=== PATIENT | male | born 1960 | race Caucasian/White ===

== ENCOUNTER → 2023-10-05 09:16 | Outpatient (CLI) | payer MEDICARE, MEDICAID, SELFPAY ==
[2023-10-05 11:20] LABS: Alanine Aminotransferase 43 IU/L (<50); Albumin 4.3 g/dL (3.5-5.0); Albumin Globulin Ratio 1.5 (1.0-2.8); Alkaline Phosphatase 93 U/L (38-126); Aspartate Aminotransferase 34 IU/L (17-59); BUN Creatinine Ratio 24.4 (6-22); Bilirubin Total 0.6 mg/dL (0.2-1.3); Blood Urea Nitrogen 20 mg/dL (9-20); Calcium 9.2 mg/dL (8.4-10.2); Carbon Dioxide 26 mmol/L (22-32); Chloride 107 mmol/L (98-107); Cholesterol 186 mg/dL (140-199); Estimated Glomerular Filt Rate > 60 mL/min (>60); Globulin 2.9 g/dL (1.7-4.1); Glucose 95 mg/dL (80-110); HDL Cholesterol 37 mg/dL (40-60); HEMOLYSIS < 15 (0-50); LDL Cholesterol Calculated 131 mg/dL (<100); Potassium 4.7 mmol/L (3.4-5.1); Sodium 140 mmol/L (137-145); Total Protein 7.2 g/dL (6.3-8.2); Triglycerides 90 mg/dL (35-150)
== END ==
PROVIDERS: PCP Family Medicine; Referring Provider Family Medicine; Visit Provider Family Medicine
DX: Z00.00 Encounter for general adult medical examination without abnormal findings (principal); Z86.73 Personal history of transient ischemic attack (TIA), and cerebral infarction without residual deficits; Z72.0 Tobacco use; Z13.220 Encounter for screening for lipoid disorders
CPT/HCPCS: 36415; 80053; 80061

== ENCOUNTER → 2023-10-10 12:13 | Outpatient (CLI) | payer MEDICARE, MEDICAID, SELFPAY ==
--- NOTE | 2023-10-10 12:17 | DI.CT.S_ITS ---
PROCEDURE: CT LUNG LOW DOSE SCREENING INDICATIONS: Lung cancer screen TECHNIQUE: Noncontrast 2.0-2.5 mm thick sections acquired from the pulmonary apices to the posterior costophrenic angles. 7 mm thick axial MIP, and 5 mm coronal and sagittal reformats were then acquired. For radiation dose reduction, the following was used: automated exposure control, adjustment of mA and/or kV according to patient size. COMPARISON: None. FINDINGS: Image quality: Diagnostic. Lower Neck: No enlarged lymph nodes. Thyroid: No thyroid nodules which require sonographic follow up, per consensus guidelines. Axillae: No enlarged lymph nodes. Chest Wall: Unremarkable. Bones: Unremarkable. Lungs and Pleura: No pneumothorax or pleural effusions. No consolidation or suspicious nodules. A 4 mm pulmonary nodule is present in the right lower lobe (series 3/image 201). Heart: Heart size is normal. No pericardial effusion. Thoracic Vessels: The aorta and pulmonary arteries demonstrate normal size. Mediastinum and Ameena: No enlarged lymph nodes. Esophagus: No wall thickening. No hiatal hernia. Upper Abdomen: Visualized upper abdomen solid organs and bowel loops appear normal. IMPRESSION: 4 mm right lower lobe pulmonary nodule. No suspicious pulmonary nodules. LUNG-RADS 2; [address] follow-up recommended. Clinically Significant Non-pulmonary Findings: None. Dictated by: Darcy Sierra M.D. on 10/10/2023 at 14:53 Approved by: Darcy Sierra M.D. on 10/10/2023 at 14:57
== END ==
LOC: CT 12:17
PROVIDERS: PCP Family Medicine; Referring Provider Family Medicine; Visit Provider Family Medicine
DX: Z12.2 Encounter for screening for malignant neoplasm of respiratory organs (principal); F17.210 Nicotine dependence, cigarettes, uncomplicated; R91.1 Solitary pulmonary nodule
CPT/HCPCS: 71271

== ENCOUNTER → 2023-11-03 09:27 | Outpatient (CLI) | payer MEDICARE, MEDICAID, SELFPAY ==
[2023-11-03 11:22] LABS: Cholesterol 204 mg/dL (140-199); HDL Cholesterol 37 mg/dL (40-60); LDL Cholesterol Calculated 139 mg/dL (<100); Triglycerides 138 mg/dL (35-150)
== END ==
LOC: LAB 09:29
PROVIDERS: PCP Family Medicine; Referring Provider Family Medicine; Visit Provider Family Medicine
DX: Z86.73 Personal history of transient ischemic attack (TIA), and cerebral infarction without residual deficits (principal); Z79.899 Other long term (current) drug therapy; Z72.0 Tobacco use
CPT/HCPCS: 36415; 80061

== ENCOUNTER 2023-11-18 13:47 | Emergency (ER) | payer MEDICARE, MEDICAID, SELFPAY ==
[2023-11-18 13:59] VITALS: BP 145/71; PULSE 86; RESP 18; TEMP 36.6; O2SAT 100; BMI 23.6
--- NOTE | 2023-11-18 14:56 | ED_ITS ---
HPI - Extremity Injury (Upper) <Carolin Chavez PA-C - Last Filed: 11/18/23 15:47> General Chief Complaint: Recheck/Abnormal Lab/Rx Stated Complaint: bleeding from elbow, sent by [facility] Time Seen by Provider: 11/18/23 14:56 Source: patient Mode of arrival: Ambulatory History of Present Illness HPI narrative: Patient is a 63-year-old male with prior history stroke per his report presenting for evaluation of bleeding in his left elbow after biopsy with Dermatology 2 days ago. He is taking clopidogrel and aspirin and losartan. He reports that he wrapped his left arm himself. He states that after wrapping, he started noticing his left hand was somewhat swollen and he noticed some skin changes in his left forearm. He reports that this stopped the bleeding and he was able to sleep last night. He denies any pain or numbness in his hand at present time with the wrapping off. He denies taking any anticoagulants. He denies any fever, body aches or chills. Related Data Home Medications Medication Instructions Recorded Confirmed losartan 25 mg tablet 25 mg PO DAILY 10/05/23 11/09/23 aspirin 81 mg tablet,delayed 81 mg PO DAILY 11/09/23 11/09/23 release (Adult Aspirin Regimen) Previous Rx's Medication Instructions Recorded clopidogrel 75 mg tablet 75 mg PO DAILY #90 tabs 10/26/23 Allergies Allergy/AdvReac Type Severity Reaction Status Date / Time No Known Allergies Allergy Verified 11/09/23 10:47 Review of Systems <Carolin Chavez PA-C - Last Filed: 11/18/23 15:47> Review of Systems Narrative: See HPI Patient History <Carolin Chavez PA-C - Last Filed: 11/18/23 15:47> Medical History Sleep apnea Fracture (~2018) Foot pain (~2018) Ankle pain (~2018) Measles Chicken pox Hx of ischemic left MCA stroke Surgical History Anesthesia History of foot surgery (~2018) Family History Father Lung cancer Diabetes mellitus Hyperlipidemia Mother Hypertension Brother Prostate cancer Hypertension Sister Autoimmune disease Sister Hyperlipidemia Grandfather Peritonitis Grandmother History of heart disease Grandfather Stroke History of heart disease Grandmother Dementia Social History Smoking Status: Former smoker Smoking Status: Former smoker Substance Use Type: does not use Exam <Carolin Chavez PA-C - Last Filed: 11/18/23 15:47> Initial Vital Signs Initial Vital Signs: Vital Signs Temperature 97.8 F 11/18/23 13:59 Pulse Rate 86 11/18/23 13:59 Respiratory Rate 18 11/18/23 13:59 Blood Pressure 145/71 H 11/18/23 13:59 Pulse Oximetry 100 11/18/23 13:59 Oxygen Delivery Method Room Air 11/18/23 13:59 GENERAL: 63 year old patient appears stated age. Well-developed patient, in no acute distress, speaking with slight stutter. HEAD: Atraumatic. Normocephalic. EYES: Pupils equal round No scleral icterus. No injection or drainage. NECK: Trachea midline, supple RESPIRATORY: Speaking comfortably normal tone of voice without any increased work of breathing. EXTREMITIES: Mild residual edema noted, nonpitting in left distal forearm, patient demonstrates 5/5 hr recruiter strength, appropriate capillary refill time of distal fingertips, appropriate color and warmth of left hand BACK: Nontender without deformity or crepitance. NEURO: AOx3. SKIN: Flat small Petechiae over left forearm distal to previous area of wrapping, wound is the size of a dime located on medial side of left elbow with light oozing of blood, no evidence of surrounding erythema or swelling noted. <Margret Gutierrez DO - Last Filed: 11/25/23 11:26> Initial Vital Signs Initial Vital Signs: Vital Signs Temperature 97.8 F 11/18/23 13:59 Pulse Rate 86 11/18/23 13:59 Respiratory Rate 18 11/18/23 13:59 Blood Pressure 145/71 H 11/18/23 13:59 Pulse Oximetry 100 11/18/23 13:59 Oxygen Delivery Method Room Air 11/18/23 13:59 Course <Carolin Chavez PA-C - Last Filed: 11/18/23 15:47> Orders Ordered: Discontinued Medications Bacitracin (Bacitracin Oint 0.9 Gm Pckt) 1 applic TOP NOW ONE Stop: 11/18/23 15:12 Last Admin: 11/18/23 15:19 Dose: 1 applic Documented By: CTS Vital Signs Vital signs: Vital Signs - 8 hr 11/18/23 13:59 11/18/23 15:24 Temperature 97.8 F 97.8 F Pulse Rate 86 78 Respiratory Rate 18 18 Blood Pressure 145/71 H 138/76 Pulse Oximetry 100 97 Oxygen Delivery Method Room Air Room Air <Margret Gutierrez DO - Last Filed: 11/25/23 11:26> Orders Ordered: Discontinued Medications Bacitracin (Bacitracin Oint 0.9 Gm Pckt) 1 applic TOP NOW ONE Stop: 11/18/23 15:12 Last Admin: 11/18/23 15:19 Dose: 1 applic Documented By: CTS Vital Signs Vital signs: Vital Signs - 8 hr 11/18/23 13:59 11/18/23 15:24 Temperature 97.8 F 97.8 F Pulse Rate 86 78 Respiratory Rate 18 18 Blood Pressure 145/71 H 138/76 Pulse Oximetry 100 97 Oxygen Delivery Method Room Air Room Air MDM - Extremity Injury (Upper) <Carolin Chavez PA-C - Last Filed: 11/18/23 15:47> MDM Narrative Medical decision making narrative: Patient is a 63-year-old male presenting for evaluation of a bleeding wound of his left elbow x2 days after biopsy. Physical exam is reassuring. Wound is oozing slightly and well controlled with compression. We have dressed his wound with bacitracin, Telfa pad and Coban. Advised patient on symptoms to look for if bandages to tight such as swelling numbing or pain sensation in his left hand. He verbalizes understanding. I advised him to lose in the wrap if he should experience this. I advised him to change the bandage starting tomorrow and thereafter do daily bandage changes. I recommend he follow up with his primary care provider for further evaluation to ensure appropriate healing. He verbalizes understanding in his agreeable to plan of care. Advised him to return to the emergency room if he develops continued severe pain in his left hand, weakness or numbness despite unwrapping the compression or spreading of the petechiae to other parts of his body. Multiple etiologies for patient's symptoms considered including, but not limited to: Infected wound, bleeding of wound, allergic reaction Patient's symptoms improved over duration of stay with above-stated therapies. Findings and discharge diagnosis discussed with patient/family followed by verbalization of understanding Return precautions discussed with patient/family whom verbalize understanding of diagnosis and plan Discharge Plan Departure Patient Disposition: Home Clinical Impression: Bleeding from wound Activity Restrictions/Additional Instructions: *You were seen today for evaluation of bleeding from your wound after the biopsy on your left elbow. Thankfully, the bleeding has significantly slowed in his quite light today. We discussed that for treatment, I recommend application of pressure with a nonadhesive bandage and a compression wrap to help reduce bleeding. We discussed if you should experience pain in her left hand or swelling that you should loosen the wrap. I recommend applying ice and keeping your left arm elevated if you noticed it continues to have some bleeding despite the compression. Starting tomorrow evening, please change your bandage, gently wash your wound with a gentle soap and water, dry, apply Vaseline and rewrap with compression bandage. I recommend that you make a follow up appointment with your primary care provider to evaluate the wounds next week to ensure it is healing appropriately. Please follow up in the ER if you should develop numbness and pain in her left hand despite taking the wrap off, if bleeding becomes profuse or other concerning signs or symptoms. With a pleasure meeting you today. Thank you for coming in today for your care. *Please follow up with your primary care provider in 2-3 days, call for an appointment. Let them know you were seen in the Emergency Department and that we ask that you be seen in follow up. We will electronically transmit a record of today's note if your PCP is in our system *If you do not have a primary care provider please contact the [facility] Resource line at [phone]. They will ask some questions about your medical history and help get you set up with a doctor in the community. Prescriptions: No Action clopidogrel 75 mg tablet 75 mg PO DAILY Qty: 90 3RF aspirin [Adult Aspirin Regimen] 81 mg tablet,delayed release (DR/EC) 81 mg PO DAILY losartan 25 mg tablet 25 mg PO DAILY Referrals: Lety Hong DO [Primary Care Provider] - Stand Alone Forms: Patient Portal/API ED Sign-out <Margret Botnick, DO - Last Filed: 11/25/23 11:26> Cosign ED Attending Cosignature Attestation: I was available for consultation.
[2023-11-18] MEDS: BACITRACIN OINT 0.9 GM PCKT 1 APPLIC TOP (15:19)
[2023-11-18 15:24] VITALS: BP 138/76; PULSE 78; RESP 18; TEMP 36.6; O2SAT 97
== END 2023-11-18 15:25 | disposition home or self-care (01) ==
PROVIDERS: Emergency Provider Physician Assistant; Family Provider Family Medicine; PCP Family Medicine
DX: L76.21 Postprocedural hemorrhage of skin and subcutaneous tissue following a dermatologic procedure (principal)
CPT/HCPCS: 99282

== ENCOUNTER 2023-11-25 14:00 | Outpatient (RCR) | payer MEDICARE, MEDICAID, SELFPAY ==
--- NOTE | 2023-11-25 16:00 | OT.OP.DC ---
Visit Care Team Role Provider Type Lety Hong DO Attending Provider Physician Family Provider Primary Care Provider Referring Provider Address: [address] [place] [address], [address], [place], [address] Email: [email or web address] Outpatient OT Outpatient Adult Evaluation Start: 11/28/23 09:26 Freq: Status: Active Protocol: Document 11/25/23 16:00 AMS (Rec: 11/28/23 09:45 AMS [id number]) General Information - Adult Visit Information Insurance Information Medicare Session Time Visit Start Time 14:30 Visit Stop Time 15:10 Setting Treatment Setting Outpatient Care Visit Type Note Type Initial Evaluation Identification Identification Confirmed Yes Identification Confirmed By Self Assessment/Plan Assessment Treatment Assessment Rodolfo is 63 years-old, retired, and right hand dominant and referred to OT secondary to stroke that reportedly occurred a month ago affecting dominant right side. Health History was significant for neck pain and ankle surgery. QuickDASH UE Outcome Measure Score = 59.09; QuickDASH UE Sports/ Performing Arts Module Score ( golf) = 75.00. Whole Body Pain Assessment Grid completed; indication of 7-8 out of 10 pain on pain scale relative to lateral surface of L foot, left lower spine, neck, R anterior/posterior shoulder, R armpit, and L dorsal/medial elbow. Rodolfo reported that he has moved out of his brother' s home and is working on renovating his own home; currently he is working on building a fence/gait; he also reports need to paint interior/exterior of the home and level out the floor of the home. Rodolfo denies any limitations with ADLs. He demonstrates good opposition bilaterally w/ EO and EC; he demonstrates good orientation to midline w/ bringing hands together above head and infront of the body. B UE AROM WFL; able to touch top of head, back of head, top of shoulders, lower back and reach down to floor level seated w/ no c/o dizziness. He demonstrates R hand thumb coordination, good R hand in- hand manipulation, and good eye-hand coordination w/ the R hand. MMT findings were as follows: 5/5 MMT for B sh flex, sh ext, sh abd, sh add, elbow flex/ext. Dynamometer II teachers aide strength testing results w/ elbows in 90 degrees flexion = 86.0# of force R teachers aide vs 90# of force L teachers aide. Pinchometer strength testing results: 22.0# of force R lateral reyes pinch vs 22.5# of force L lateral reyes pinch; 21. 5# of force R tip pinch vs 14. 0# of force L tip pinch; 20.0# of force R 3-jaw pinch; 21.0# of force L 3-jaw pinch. No further OT is needed at this time. Recommend d/c from OT. Plan Patient Recommendations Discharge from Occupational Therapy Functional Wrist/Hand Scan Hand Side Sensory Assessment Sensory Profile2
== END 2023-12-08 11:59 ==
LOC: OT 14:00
PROVIDERS: Family Provider Family Medicine; PCP Family Medicine; Referring Provider Family Medicine; Visit Provider Family Medicine
DX: I63.9 Cerebral infarction, unspecified (principal)
CPT/HCPCS: 97165

== ENCOUNTER 2023-12-20 15:12 | Outpatient (RCR) | payer MEDICARE, MEDICAID, SELFPAY ==
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
--- NOTE | 2023-12-20 16:00 | PT.OPPOC ---
Physical, Occupational & Speech Therapy At [facility] Current Diagnoses Other chronic pain (12/20/23) Cerebral infarction, unspecified (12/20/23) Pain in right ankle and joints of right foot (12/20/23) Pain in unspecified foot (12/20/23) Weakness (12/20/23) Visit Care Team Role Provider Type Lety Hong DO Attending Provider Physician Family Provider Primary Care Provider Referring Provider Specialty: Family Practice Address: [address] [place] [address], [address], [facility] Email: [email or web address] Plan Of Care PT-OP-T Assessment and Plan Start: 12/20/23 17:31 Freq: Status: Active Protocol: Document 12/20/23 15:20 DCW (Rec: 12/21/23 11:11 DCW [id number]) Physical Therapy Assessment Assessment Summary Assessment Pt presents 2.5 months s/p CVA doing very well. No safety or physical impairments noted at time of his evaluation. Pt scored 56/56 on Porter Balance scale and 30/30 on Functional Gait Assessment. Does not appear to have any difficulty with gait, stairs, balance, or strength. There was some difficulty due to tangential nature of pt's subjective history and ongoing word- finding difficulty to determine what pt was looking for as far as physical therapy was concerned, but repeated multiple times that he was hoping to lose weight. Without testable deficits to determine medical necessity, this is not a skilled therapeutic intervention. Pt would do well with continued FOOD SERVICE ORDER CLERK intervention for cognition and expressive aphasia. Pt unlikely to benefit from outpatient PT at this time. Physical Therapy Plan Frequency and Duration Plan of Care Start Date 12/20/23 Plan of Care End Date 12/22/23 Discharge Physical Therapy Discharge Comments Skilled Outpatient PT not indicated at this time. Plan of Care Dates Plan of Care Start Date 12/20/23 Plan of Care End Date 12/22/23 Electronically Signed by: Valentin Fink, PT 12/21/23 0904 If you are in agreement with this Plan of Care, please return a signed and dated copy. I have reviewed this Plan of Care and certify that the skilled therapy services above are required to meet the patient?s needs. Physician Signature Date Printed Name and Credentials Clinical Instructor Signature Printed Name and Credentials
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
== END 2023-12-27 10:38 | disposition home or self-care (01) ==
LOC: PHYS 15:12
PROVIDERS: Family Provider Family Medicine; PCP Family Medicine; Referring Provider Family Medicine; Visit Provider Family Medicine
DX: I63.9 Cerebral infarction, unspecified (principal); R53.1 Weakness; M79.673 Pain in unspecified foot; M25.571 Pain in right ankle and joints of right foot; G89.29 Other chronic pain
CPT/HCPCS: 97161

== ENCOUNTER → 2024-01-18 11:53 | Outpatient (CLI) | payer MEDICARE, MEDICAID, SELFPAY ==
--- NOTE | 2024-01-18 11:55 | DI.CT.S_ITS ---
PROCEDURE: CT LE RT WO CON INDICATIONS: Right foot pain TECHNIQUE: Noncontrast 1-1.5 mm axial sections acquired from above the tibiotalar joint to the bottom of the calcaneus, with coronal and sagittal reformats. COMPARISON: [facility] Outside Film, CR, XR CALCANEUS RIGHT, 06/01/2017, 9:04. [facility] Outside Film, CR, XR CALCANEUS RIGHT, 07/27/2017, 14:13. [facility]opedic Topping, CR, XR FOOT 3 VIEWS WEIGHT BEARING RIGHT, 01/03/2024, 16:02. FINDINGS: Image quality: Diagnostic. Significant beam hardening artifacts from surgical hardware in right calcaneus are seen. Bones: Again noted are post ORIF changes in calcaneus. Surgical hardware positions are not significantly changed from prior study back in 2017. There is no gross hardware loosening or failure. Partial bony union involving comminuted calcaneal fracture site is seen. Osteoarthritic changes are noted throughout right foot more notably involving subtalar joint and talonavicular joint. No acute fracture or dislocation. No suspicious intraosseous lesion. No CT evidence of metatarsal stress fracture. Soft tissues: There is small amount of tibiotalar joint effusion. No calcified intra-articular loose bodies. No soft tissue mass or discrete drainable fluid collection. No full-thickness tendon rupture. There is no abnormal soft tissue calcifications. The visualized plantar fascia appears thickened near its plantar calcaneal insertion. IMPRESSION: 1. Prior surgery in calcaneus with surgical hardware in place and partial bony fusion at comminuted calcaneal fracture site. No acute fracture or dislocation. No gross hardware loosening or failure. 2. [id number] osteoarthritic changes throughout right foot most notably involving hindfoot joints. No suspicious bony lesions. 3. Thickened plantar fascia concerning for low-grade plantar fasciitis. 4. Small joint effusion, no loose bodies. No abnormal soft tissue calcifications or soft tissue mass. No drainable fluid collection. No full-thickness tendon rupture. Dictated by: Handy Nova M.D. on 01/18/2024 at 16:55 Approved by: Handy Nova M.D. on 01/18/2024 at 16:58
== END ==
LOC: CT 11:54
PROVIDERS: PCP Family Medicine; Referring Provider Orthopaedic Surgery Foot and Ankle Surgery; Visit Provider Orthopaedic Surgery Foot and Ankle Surgery
DX: M79.671 Pain in right foot (principal); S92.001S Unspecified fracture of right calcaneus, sequela; M25.474 Effusion, right foot
CPT/HCPCS: 73700

== ENCOUNTER → 2024-01-31 08:55 | Outpatient (CLI) | payer MEDICARE, MEDICAID, SELFPAY ==
[2024-01-31 10:23] LABS: Cholesterol 172 mg/dL (140-199); HDL Cholesterol 44 mg/dL (40-60); LDL Cholesterol Calculated 91 mg/dL (<100); Triglycerides 185 mg/dL (35-150)
== END ==
PROVIDERS: PCP Family Medicine; Referring Provider Family Medicine; Visit Provider Family Medicine
DX: Z13.220 Encounter for screening for lipoid disorders (principal); I63.9 Cerebral infarction, unspecified; E78.5 Hyperlipidemia, unspecified; Z72.0 Tobacco use
CPT/HCPCS: 36415; 80061

== ENCOUNTER → 2024-03-15 | Outpatient (CLI) | payer MEDICARE, MEDICAID, SELFPAY ==
--- NOTE | 2024-03-15 14:23 | DI.ECHO.S_ITS ---
[facility] +---------+ Hospital : : [address] : : [place] : : [id number] : : Phone: [phone] Echocardiogram Report + + :Name: EMILIA PRETTY Study Date: 03/15/2024 Height: 70 in : :Hospital ReadingLocation: Weight: 200 lb : : Gender: Male BSA: 2.1 m2 : :: 1960 Age: 63 yrs BP: 162/85 mmHg: :Reason For Study: ESSENTIAL HYPERTENSION : :Ordering Physician: ANDREA, : :NIURKA Performed By: Tino Elena : :Referring: NIURKA MENDEZ : + + Interpretation Summary The left ventricle is normal in size. The left ventricular ejection fraction is normal. The ejection fraction is estimated to be 60-65%. The right ventricle is normal size. The right ventricular systolic function is normal. No significant valvular pathology seen. The IVC is of normal diameter and collapses greater than 50% with a sniff. This suggests a low right atrial pressure of 3 mm Hg. Procedure: A two-dimensional transthoracic echocardiogram with color flow and Doppler was performed. The study quality was technically adequate. There is no prior echocardiogram noted for this patient. The patient was in sinus rhythm with heart rates between 63-83 bpm during the exam. Left Ventricle: The left ventricle is normal in size. Proximal septal thickening is noted. There is no thrombus. A false chord is noted (normal variant). The ejection fraction is estimated to be 60-65%. The left ventricular ejection fraction is normal. There are no focal wall motion abnormalities. Diastolic parameters suggest a relaxation abnormality of the left ventricle, consistent with probable normal filling pressures. Right Ventricle: The right ventricle is normal size. The right ventricular systolic function is normal. Atria: The left atrial size is normal. Right atrial size is normal. The interatrial septum grossly appears intact with no obvious evidence for an atrial septal defect. Mitral Valve: There is mild mitral annular calcification. Redundant elongated chordae are noted. There is no mitral valve stenosis. There is trace mitral regurgitation. Aortic Valve: The aortic valve is trileaflet. There is no aortic valve stenosis. No aortic regurgitation is present. Tricuspid Valve: The tricuspid valve is normal. There is no tricuspid stenosis. Pulmonary artery pressures cannot be estimated because of the lack of a measurable TR jet velocity. There is trace tricuspid regurgitation. Pulmonic Valve: The pulmonic valve is not well visualized. There is no pulmonic valvular stenosis. There is no pulmonic valvular regurgitation. Great Vessels: The aortic root is borderline dilated. The dimensions of the ascending aorta are normal. The IVC is of normal diameter and collapses greater than 50% with a sniff. This suggests a low right atrial pressure of 3 mm Hg. Pericardium/ Pleura There is no pericardial effusion. There is no pleural effusion. MMode/2D Measurements & Calculations LVIDd: 4.7 cm LVOT diam: 2.2 cm LVIDs: 2.9 cm Ao root diam: 3.7 cm FS: 38.7 % asc Aorta Diam: 3.3 cm IVSd: 1.0 cm LVPWd: 0.95 cm LV bueno. diameter/BSA (cm/m^2): 2.3 LV sys. diameter/BSA (cm/m^2): 1.4 LA A2 area: 12.7 cm2 RA long axis: 4.9 cm LA A4 area: 16.2 cm2 RA area: 13.6 cm2 LA length (vol): 5.0 cm RA vol: 32.2 ml LA vol: 35.2 ml RA : 15.4 ml/m2 LA vol index: 16.9 ml/m2 IVC diam: 1.2 cm RVD1 (basal): 2.9 cm RVD2 (mid): 2.7 cm TAPSE: 1.6 cm Doppler Measurements & Calculations Ao V2 max: 111.5 cm/sec LVOT Max Lamonte: 100.7 cm/sec Ao V2 mean: 82.6 cm/sec LV V1 max P.1 mmHg Ao max P.0 mmHg LV V1 VTI: 20.8 cm Ao mean P.9 mmHg RIKI(I,D): 3.4 cm2 Ao V2 VTI: 23.9 cm RIKI(V,D): 3.6 cm2 sev ratio: 0.87 RIKI indexed to BSA (cm^2/m^2): 1.6 MV E max lamonte: 54.5 cm/sec PA V2 max: 122.8 cm/sec MV A max lamonte: 75.5 cm/sec PA V2 mean: 89.5 cm/sec MV E/A: 0.72 PA mean P.5 mmHg Med Peak E' Lamonte: 6.1 cm/sec PA pr(Accel): 19.1 mmHg E/E' med: 8.9 Lat Peak E' Lamonte: 10.9 cm/sec E/E' lat: 5.0 E/e' average: 6.9 MV dec time: 0.24 sec SV(LVOT): 82.2 ml Reading Physician:04:52 PM
== END ==
PROVIDERS: PCP Family Medicine; Referring Provider Family Medicine; Visit Provider Family Medicine
DX: I34.81 Nonrheumatic mitral (valve) annulus calcification (principal); I10 Essential (primary) hypertension; Z86.73 Personal history of transient ischemic attack (TIA), and cerebral infarction without residual deficits; R63.5 Abnormal weight gain; R60.9 Edema, unspecified
CPT/HCPCS: 93306

== ENCOUNTER → 2024-03-23 14:33 | Outpatient (CLI) | payer MEDICARE, MEDICAID, SELFPAY ==
[2024-03-23 15:59] LABS: Add Manual Diff / Slide Review NO; Basophils Absolute Auto 100 /uL (0-100); Eosinophils Absolute Auto 200 /uL (0-450); Eosinophils Percent Auto 3.7 % (2-4); Hematocrit 42.9 % (41-53); Hemoglobin 14.1 g/dL (13.5-17.5); Lymphocytes Absolute Auto 1700 /uL (1100-4500); Lymphocytes Percent Auto 27.3 % (25-40); Mean Corpuscular HGB Conc 32.7 % (30-36); Mean Corpuscular Hemoglobin 28.7 PG (26-34); Mean Corpuscular Volume 87.6 fL (80-100); Monocytes Absolute Auto 500 /uL (0-900); Monocytes Percent Auto 8.5 % (3-14); Neutrophils Absolute Auto 3700 /uL (1500-7000); Neutrophils Percent Auto 59.5 % (50-75); Platelet Count 256 X10^3/uL (150-400); Red Cell Distribution Width 13.9 % (11.6-14.8); White Blood Cell Count 6.2 X10^3/uL (4.5-11.0)
[2024-03-23 16:28] LABS: Alanine Aminotransferase 61 IU/L (<50); Albumin 4.4 g/dL (3.5-5.0); Albumin Globulin Ratio 1.6 (1.0-2.8); Alkaline Phosphatase 87 U/L (38-126); Aspartate Aminotransferase 36 IU/L (17-59); BUN Creatinine Ratio 21.2 (6-22); Bilirubin Total 0.5 mg/dL (0.2-1.3); Blood Urea Nitrogen 21 mg/dL (9-20); Calcium 9.4 mg/dL (8.4-10.2); Carbon Dioxide 23 mmol/L (22-32); Chloride 108 mmol/L (98-107); Estimated Glomerular Filt Rate > 60 mL/min (>60); Globulin 2.7 g/dL (1.7-4.1); Glucose 105 mg/dL (80-110); HEMOLYSIS < 15 (0-50); Potassium 4.4 mmol/L (3.4-5.1); Sodium 141 mmol/L (137-145); Total Protein 7.1 g/dL (6.3-8.2)
[2024-03-23 18:40] LABS: Hemoglobin A1C% w Est Avg Glu 5.7 % (4.0-6.0)
== END ==
PROVIDERS: PCP Family Medicine; Referring Provider Family Medicine; Visit Provider Family Medicine
DX: I10 Essential (primary) hypertension (principal); R73.03 Prediabetes; I63.9 Cerebral infarction, unspecified; Z86.73 Personal history of transient ischemic attack (TIA), and cerebral infarction without residual deficits; I69.320 Aphasia following cerebral infarction; R91.1 Solitary pulmonary nodule
CPT/HCPCS: 36415; 80053; 83036; 85025

== ENCOUNTER → 2024-09-22 14:49 | Outpatient (CLI) | payer MEDICARE, MEDICAID, SELFPAY ==
--- NOTE | 2024-09-22 14:50 | DI.CT.S_ITS ---
PROCEDURE: CT CHEST WO CON INDICATIONS: Follow-up screening; prior 4 mm nodule RLL TECHNIQUE: Noncontrast 5 mm thick sections acquired from the pulmonary apices to the posterior costophrenic angles. 1 mm lung window, 5 mm thick coronal and sagittal and 7 mm axial MIP reformats were then acquired. For radiation dose reduction, the following was used: automated exposure control, adjustment of mA and/or kV according to patient size. COMPARISON: [facility], CT, CT LUNG LOW DOSE SCREENING, 10/10/2023, 12:31. FINDINGS: Image quality: Diagnostic. Lower Neck: No enlarged lymph nodes. Thyroid: Normal CT appearance. Axillae: No enlarged lymph nodes. Chest Wall: No suspicious chest wall mass. Bones: Unremarkable. Lungs and Pleura: Multiple stable bilateral lung nodules measuring 4 mm and 5 mm. Right upper lobe 3/114, right middle lobe 3/184, right lower lobe 3/191 and 223, left upper lobe 3/114 and left lower lobe 3/209. Minor apical emphysematous changes. No ground-glass opacities or consolidations. Normal airways. No pleural effusion. Heart: Heart size is normal. No pericardial effusion. Mild coronary artery calcification. Thoracic Vessels: The aorta and pulmonary arteries demonstrate normal size. Mediastinum and Ameena: No enlarged lymph nodes. Esophagus: No wall thickening. No hiatal hernia. Upper Abdomen: Visualized upper abdomen solid organs and bowel loops appear normal. IMPRESSION: Stable bilateral 4 mm and 5 mm lung nodules. No suspicious new nodule. Continue annual low-dose chest CT screening if patient meets criteria. Dictated by: Brii De La Cruz M.D. on 09/23/2024 at 21:07 Approved by: Brii De La Cruz M.D. on 09/23/2024 at 21:20
== END ==
PROVIDERS: PCP Family Medicine; Referring Provider Family Medicine; Visit Provider Family Medicine
DX: I25.10 Atherosclerotic heart disease of native coronary artery without angina pectoris (principal); R91.8 Other nonspecific abnormal finding of lung field; Z72.0 Tobacco use
CPT/HCPCS: 71250